=== PATIENT | female | born 1985 | race Caucasian/White ===

== ENCOUNTER 2017-07-11 18:10 | Emergency (ER) | payer OTHER ==
--- NOTE | 2017-07-11 18:41 | EDPHY ---
H & P Smoking Status: Never smoked Time Seen by Provider: 07/11/17 18:15 HPI/ROS: Chief complaint: Hand laceration History of present illness: This is a 32-year-old female who presents to the emergency department for a right hand laceration. Patient was attempting to install a car seat when she struck a piece of the seat on the back of her hand cutting it. She has noted a small laceration over the 3rd knuckle. There has been some bleeding. Minimal pain. She can still move the knuckle well. There is no report of abnormal coolness or paresthesias in the finger. Her tetanus is up-to-date. (Bill Slaughter) Physical Exam: General: Alert, nontoxic Skin: 1 cm laceration in a flap pattern just distal to the 3rd MCP joint. Exploration does not reveal foreign body or deep structure injury. Musculoskeletal: The extensor tendon is visualized. It does not appear to be injured. She is flexing extending the 3rd finger well in the MCP, PIP and the DIP joint well. Vascular: Capillary refill brisk in the right middle finger. Neurologic: Sensation intact using light touch and two-point discrimination ( Bill Slaughter) Constitutional: Initial Vital Signs Temperature (C) 36.7 C 07/11/17 18:11 Heart Rate 84 07/11/17 18:11 Respiratory Rate 18 07/11/17 18:11 Blood Pressure 142/94 H 07/11/17 18:11 O2 Sat (%) 97 07/11/17 18:11 O2 Delivery Mode Room Air Allergies/Adverse Reactions: No Known Allergies Allergy (Unverified 07/11/17 18:15) Home Medications: Medication Instructions Recorded Control 07/11/17 MDM/Departure - [facility] Procedures: Procedure: Laceration repair. Verbal consent was obtained from the patient. The 1 cm laceration on the right hand was anesthetized in the usual fashion. The wound was irrigated, draped and explored to its base with a gloved finger. There were no deep structures involved. No tendon injury was identified. The wound was repaired with 5 0 Prolene, 3 simple interrupted sutures. The wound repair was simple. The procedure was performed by myself. (Bill Slaughter) ED Course/Re-evaluation: Patient seen under the supervision of my secondary supervising physician Dr. Randa Dawson. Patient presents for a right hand laceration. The hand and affected digit are neurovascularly intact. She has good musculoskeletal control of the hand and digit. Exploration of the wound does not reveal evidence of deep structure injury or foreign body contamination. Wound is cleaned, repaired and dressed. Her tetanus is already up-to-date. She is asked to follow up with her primary care doctor or hand doctor this week for recheck. Return precautions are given. (Bill Slaughter) The patient was evaluated and managed by the Physician Paper Tube Machine Operator. My co- signature indicates that I have reviewed this chart and I agree with the findings and plan of care as documented. I am the secondary supervising physician. (Randa Dawson) Differential Diagnosis: Included but not limited to laceration, deep structure injury, foreign body contamination (Bill Slaughter) - Depart Disposition: Home, Routine, Self-Care Clinical Impression: Hand laceration Qualifiers: Encounter type: initial encounter Foreign body presence: without foreign body Laterality: right Qualified Code(s): S61.411A - Laceration without foreign body of right hand, initial encounter Condition: Good Instructions: Care For Your Stitches (ED), Laceration (ED), Acute Wounds (ED) Additional Instructions: Follow-up with a primary care doctor or hand doctor for continued evaluation and care Stitches to be removed in 7 days If symptoms worsen or new symptoms develop return to the emergency room for recheck Referrals: NONE *PRIMARY CARE P,. [Primary Care Provider] - As per Instructions Lupis Jha MD [Medical Doctor] - As per Instructions
[2017-07-11 19:24] VITALS: BP 134/82
== END 2017-07-11 19:24 | disposition home or self-care (01) ==
PROC: 0HQFXZZ Repair Right Hand Skin, External Approach (ICD-10-PCS; principal; 2017-07-11)
DX: S61.411A Laceration without foreign body of right hand, initial encounter (principal); W26.8XXA Contact with other sharp object(s), not elsewhere classified, initial encounter; Y92.810 Car as the place of occurrence of the external cause; Y99.8 Other external cause status; Y93.89 Activity, other specified